=== PATIENT | male | born 1960 | race Caucasian/White ===

== ENCOUNTER 2017-04-20 08:58 | Emergency (ER) | payer MEDICAID ==
[~2017-04-20] VITALS: Ht 182.9 cm; Wt 79.5 kg
[2017-04-20] MEDS ORDERED: BUPR100 PO (09:08)
[2017-04-20] MEDS ORDERED: LIB10 PO (09:10)
[2017-04-20] MEDS ORDERED: KETOROLAC TROMETHAMINE 60 MG/2 ML VIAL IM ONE (09:45)
[2017-04-20 10:44] VITALS: BP 150/100
== END 2017-04-20 10:47 | disposition home or self-care (01) ==
LOC: EMS 09:01
DX: S90.32XA Contusion of left foot, initial encounter (principal); M54.9 Dorsalgia, unspecified; F17.210 Nicotine dependence, cigarettes, uncomplicated; F32.9 Major depressive disorder, single episode, unspecified; W15.XXXA Fall from cliff, initial encounter; Y93.89 Activity, other specified; Y92.89 Other specified places as the place of occurrence of the external cause; Y99.8 Other external cause status
CPT/HCPCS: 73630; 96372; 99284; J1885